=== PATIENT | male | born 1970 | race Hispanic/Latino ===

== ENCOUNTER → 2023-02-27 | Outpatient (CLI) | payer OTHER ==
[~2023-02-27] MED LIST: ALBUTEROL 0.083% 2.5 MG/3 ML INH IH ONE
== END | disposition home or self-care (01) ==
LOC: RESP 09:18
PROVIDERS: ATTEND Chiropractor
DX: J44.9 Chronic obstructive pulmonary disease, unspecified (principal); I51.7 Cardiomegaly; R06.02 Shortness of breath
CPT/HCPCS: 71046; 94060